=== PATIENT | male | born 1950 | race Caucasian/White ===

== ENCOUNTER → 2017-02-08 | Outpatient (CLI) | payer MEDICARE ==
[~2017-02-08] MED LIST: ATOR40TA78 PO; SIMV40TA3 PO
== END | disposition home or self-care (01) ==
LOC: STAR 08:52
PROVIDERS: ATTEND Otolaryngology
DX: Z01.818 Encounter for other preprocedural examination (principal); J34.2 Deviated nasal septum
CPT/HCPCS: 93005

== ENCOUNTER 2017-02-15 08:47 | Day surgery (SDC) | payer MEDICARE ==
[~2017-02-15] VITALS: Ht 180.3 cm; Wt 81.0 kg
[2017-02-15] MEDS ORDERED: LACTATED RINGERS 1,000 ML IV SCH (09:11)
[2017-02-15 09:19] VITALS: BP 164/98
[2017-02-15] MEDS ORDERED: OXYMETAZOLINE NASAL SPRAY 0.05%, 15ML ONE ×2 (09:49→11:45)
[2017-02-15] MEDS ORDERED: BACITRACIN OINT 500U/GM, 15 GM ONE (09:50)
[2017-02-15] MEDS ORDERED: LIDOCAINE 1%-EPI 1:100K, 30ML ONE (09:50)
[2017-02-15] MEDS ORDERED: MIDAZOLAM 1 MG/ML, 2ML ONE (09:59)
[2017-02-15] MEDS ORDERED: FENTANYL PF 250 MCG/5ML ONE (09:59)
[2017-02-15] MEDS ORDERED: REMIFENTANIL 2 MG ONE (11:32)
[2017-02-15] MEDS ORDERED: EPHEDRINE 50 MG/ML, 1ML IVPush PRN (12:30)
[2017-02-15] MEDS ORDERED: METOPROLOL 1 MG/ML, 5ML IV PRN (12:30)
[2017-02-15] MEDS ORDERED: OXYcodone 5 MG/5 ML ORAL.SOL UDC PO PRN (12:30)
[2017-02-15] MEDS ORDERED: ONDANSETRON 2MG/ML, 2ML IVPush PRN (12:30)
[2017-02-15] MEDS ORDERED: MIDAZOLAM 1 MG/ML, 2ML IV PRN (12:30)
[2017-02-15] MEDS ORDERED: PROMETHAZINE 25 MG/ML, 1ML IV PRN (12:30)
[2017-02-15] MEDS ORDERED: hydrALAzine 20 MG/ML, 1ML IV PRN (12:30)
[2017-02-15] MEDS ORDERED: ACETAMINOPHEN 325 MG TABLET PO PRN (12:30)
[2017-02-15] MEDS ORDERED: HYDROmorphone 1 MG/ML, 1ML IV PRN (12:30)
[2017-02-15] MEDS ORDERED: MEPERIDINE/PF 25MG/0.5ML IVPush PRN (12:30)
[2017-02-15] MEDS ORDERED: ALBUTEROL SULFATE 2.5 MG/3 ML NPPB PRN (12:30)
[2017-02-15] MEDS ORDERED: FENTANYL PF 100 MCG/2ML ONE ×2 (13:12→13:55)
[2017-02-15] MEDS ORDERED: OXYcodone 5 MG/5 ML ORAL.SOL UDC ONE ×2 (13:13→14:37)
[2017-02-15] MEDS: FENTANYL PF 100 MCG/2ML IV PRN ×4 (13:14→14:07)
[2017-02-15] MEDS ORDERED: ACETAMINOPHEN 325 MG TABLET ONE (13:17)
[2017-02-15] MEDS ORDERED: LABETALOL 5MG/ML, 20ML ONE (13:40)
[2017-02-15] MEDS: LABETALOL 5MG/ML, 20ML IV PRN ×3 (13:42→14:00)
[2017-02-15] MEDS ORDERED: hydrALAzine 20 MG/ML, 1ML ONE (14:02)
[2017-02-15] MEDS ORDERED: OXYcodone 5 MG/5 ML ORAL.SOL UDC PO ONE (15:00)
[2017-02-15] MEDS ORDERED: ROCURONIUM 10 MG/ML ONE (16:25)
[2017-02-15] MEDS ORDERED: ONDANSETRON 2MG/ML, 2ML ONE (16:25)
[2017-02-15] MEDS ORDERED: PROPOFOL 10 MG/ML, 20ML ONE (16:25)
[2017-02-15] MEDS ORDERED: DEXAMETHASONE 4 MG/ML, 1ML ONE (16:25)
[2017-02-15] MEDS ORDERED: CEFAZOLIN 1,000 MG ONE (16:25)
[2017-02-15] MEDS ORDERED: PROPOFOL 10 MG/ML, 50ML ONE (16:25)
[2017-02-15] MEDS ORDERED: SUCCINYLCHOLINE 20 MG/ML, 10ML ONE (16:25)
== END 2017-02-15 17:10 | disposition home or self-care (01) ==
LOC: OUT 08:47
PROVIDERS: ATTEND Otolaryngology
DX: J34.2 Deviated nasal septum (principal); J34.89 Other specified disorders of nose and nasal sinuses; M95.0 Acquired deformity of nose; I25.2 Old myocardial infarction; Z95.1 Presence of aortocoronary bypass graft; I10 Essential (primary) hypertension; I25.10 Atherosclerotic heart disease of native coronary artery without angina pectoris; E78.5 Hyperlipidemia, unspecified; Z95.5 Presence of coronary angioplasty implant and graft
CPT/HCPCS: 30465; 30520; J0330; J0360; J0690; J1100; J2250; J2405; J2704; J3010; J3490; J7120

== ENCOUNTER 2019-02-06 09:20 | Emergency (ER) | payer MEDICARE ==
[~2019-02-06] VITALS: Ht 180.3 cm; Wt 82.0 kg
[2019-02-06] MEDS ORDERED: MECLIZINE CHEWABLE 25 MG TAB PO ONE (09:30)
[2019-02-06] MEDS ORDERED: SODIUM CHLORIDE FLUSH 10ML SYR IVF ONE (09:30)
--- NOTE | 2019-02-06 09:37 | NUR ---
PT TO CT W TECH
[2019-02-06] MEDS ORDERED: MECLIZINE CHEWABLE 25 MG TAB ONE (09:42)
[2019-02-06 09:52] VITALS: BP 119/71
[2019-02-06] MEDS ORDERED: PLEASE ENTER HEIGHT AND WEIGHT MC SCH (10:00)
[2019-02-06 10:13] LABS: BASOPHILS # (AUTO) 0.04 x10^3/uL (0-0.1); BASOPHILS % (AUTO) 1 % (0-1); EOSINOPHILS # (AUTO) 0.01 x10^3/uL (0-0.4); EOSINOPHILS % (AUTO) 0 % (1-7); LYMPHOCYTES # (AUTO) 1.12 x10^3/uL (1-3.4); LYMPHOCYTES % (AUTO) 14 % (22-44); MD NO; MEAN CORPUSCULAR HEMOGLOBIN 29.8 pg (27.5-34.5); MEAN CORPUSCULAR HGB CONC 33.4 g/dL (33.2-36.2); MEAN CORPUSCULAR VOLUME 89.4 fL (81-97); MONOCYTES # (AUTO) 0.43 x10^3/uL (0.2-0.8); MONOCYTES % (AUTO) 5 % (2-9); NEUTROPHILS # (AUTO) 6.38 x10^3/uL (1.8-6.8); NEUTROPHILS % (AUTO) 80 % (42-75); PLATELET COUNT 200 x10^3/uL (130-400); RED BLOOD COUNT 5.32 x10^6/uL (4.38-5.82); RED CELL DISTRIBUTION WIDTH 14.4 % (9.4-14.8)
[2019-02-06 10:17] LABS: ALANINE AMINOTRANSFERASE 24 U/L (12-78); ALBUMIN 3.7 g/dL (3.4-5.0); ANION GAP 3 mmol/L (5-15); CALCIUM 8.6 mg/dL (8.5-10.1); CHLORIDE 108 mmol/L (98-107)
[2019-02-06 10:22] LABS: ALKALINE PHOSPHATASE 79 U/L (45-117); BILIRUBIN,TOTAL 1.3 mg/dL (0.2-1.0); CREATININE 1.12 mg/dL (0.7-1.3); TOTAL PROTEIN 6.6 g/dL (6.4-8.2); TROPONIN I < 0.015 ng/mL (0.000-0.045)
--- NOTE | 2019-02-06 11:05 | NUR ---
PT TO AND FROM MRI W TECH. HE TOLERATED THE IMAGING WELL.
== END 2019-02-06 12:02 | disposition home or self-care (01) ==
LOC: ED 09:36
DX: R42 Dizziness and giddiness (principal); I25.2 Old myocardial infarction; I10 Essential (primary) hypertension; Z86.73 Personal history of transient ischemic attack (TIA), and cerebral infarction without residual deficits
CPT/HCPCS: 36415; 70450; 70551; 80053; 84484; 85025; 93005; 99284

== ENCOUNTER 2020-07-09 07:21 | Emergency (ER) | payer MEDICARE ==
[~2020-07-09] VITALS: Ht 180.3 cm; Wt 82.0 kg
[~2020-07-09 07:21] MED LIST changes: +SIMV40TA20 PO; -SIMV40TA3 PO
[2020-07-09 07:23] VITALS: BP 140/85
[2020-07-09] MEDS ORDERED: SODIUM CHLORIDE FLUSH 10ML SYR IVF ONE (07:30)
[2020-07-09 07:56] LABS: ALANINE AMINOTRANSFERASE 28 U/L (12-78); ALBUMIN 3.6 g/dL (3.4-5.0); ANION GAP 6 mmol/L (5-15); CALCIUM 8.4 mg/dL (8.5-10.1); CHLORIDE 112 mmol/L (98-107); CREATININE 1.02 mg/dL (0.7-1.3)
[2020-07-09] MEDS ORDERED: MECLIZINE CHEWABLE 25 MG TAB PO ONE (08:00)
[2020-07-09 08:01] LABS: ALKALINE PHOSPHATASE 66 U/L (45-117); BILIRUBIN,TOTAL 1.2 mg/dL (0.2-1.0); TOTAL PROTEIN 6.8 g/dL (6.4-8.2); TROPONIN I < 0.015 ng/mL (0.000-0.045)
[2020-07-09 08:14] LABS: BASOPHILS # (AUTO) 0.04 x10^3/uL (0-0.1); BASOPHILS % (AUTO) 0 % (0-1); EOSINOPHILS # (AUTO) 0.03 x10^3/uL (0-0.4); EOSINOPHILS % (AUTO) 0 % (1-7); LYMPHOCYTES # (AUTO) 1.14 x10^3/uL (1-3.4); LYMPHOCYTES % (AUTO) 13 % (22-44); MD NO; MEAN CORPUSCULAR HEMOGLOBIN 30.8 pg (27.5-34.5); MEAN CORPUSCULAR VOLUME 93.4 fL (81-97); MEAN PLATELET VOLUME 8.7 fL (7.4-10.4); MONOCYTES # (AUTO) 0.42 x10^3/uL (0.2-0.8); MONOCYTES % (AUTO) 5 % (2-9); NEUTROPHILS # (AUTO) 7.44 x10^3/uL (1.8-6.8); NEUTROPHILS % (AUTO) 82 % (42-75); PLATELET COUNT 172 x10^3/uL (130-400); RED BLOOD COUNT 5.04 x10^6/uL (4.38-5.82); RED CELL DISTRIBUTION WIDTH 13.5 % (9.4-14.8)
[2020-07-09] MEDS ORDERED: MECLIZINE CHEWABLE 25 MG TAB ONE (08:14)
--- NOTE | 2020-07-09 08:22 | NUR ---
PT DENIES DIZZINESS OR NAUSEA AT THIS TIME. AWAITING RE-EVAL
== END 2020-07-09 09:59 | disposition home or self-care (01) ==
LOC: ED 09:48
DX: H81.11 Benign paroxysmal vertigo, right ear (principal); R07.9 Chest pain, unspecified; R94.31 Abnormal electrocardiogram [ECG] [EKG]; I10 Essential (primary) hypertension; E78.00 Pure hypercholesterolemia, unspecified; I25.2 Old myocardial infarction
CPT/HCPCS: 36415; 71045; 80053; 84484; 85025; 93005; 99285